=== PATIENT | female | born 1995 | race Caucasian/White ===

== ENCOUNTER 2023-10-13 00:10 | Emergency (ER) | payer MEDICAID ==
[~2023-10-13] VITALS: Ht 165.1 cm; Wt 85.7 kg
[2023-10-13 00:50] VITALS: TEMP 99.2
[2023-10-13] MEDS ORDERED: KETOROLAC TROMETHAMINE INJ 30 MG/ML VIAL ONE (01:28)
[2023-10-13] MEDS ORDERED: METHOCARBAMOL (500MG) 500 MG TABLET ONE (01:29)
[2023-10-13] MEDS: KETOROLAC TROMETHAMINE INJ 30 MG/ML VIAL IM ONE (01:36)
[2023-10-13] MEDS: METHOCARBAMOL (500MG) 500 MG TABLET PO ONE (01:36)
[2023-10-13 03:03] LABS: APPEARANCE,URINE CLEAR (CLEAR); BILIRUBIN,URINE NEGATIVE (NEGATIVE); BLOOD, URINE 2+ Ery/uL (NEGATIVE); COLOR,URINE YELLOW (YELLOW); KETONES,URINE NEGATIVE (NEGATIVE); LEUKOCYTE ESTERASE ,URINE NEGATIVE (NEGATIVE); NITRITE, URINE NEGATIVE (NEGATIVE); PH,URINE 5.5 (5.0-8.0); PROTEIN,URINE NEGATIVE (NEGATIVE); UGLUCOSE NEGATIVE (NEGATIVE)
[2023-10-13 03:06] LABS: ADD URINE CULTURE NO; BACTERIA,URINE None seen /HPF (None Seen); SQUAMOUS EPITHELIAL CELL,UR Rare /HPF (None Seen); WBC,URINE 0-2 /HPF (0-3)
[2023-10-13 03:07] LABS: PREGNANCY TEST URINE QUAL NEGATIVE (NEGATIVE)
[2023-10-13] MEDS ORDERED: PRED50TA PO (03:59)
[2023-10-13] MEDS ORDERED: HYDR-4303 PO (03:59)
[2023-10-13] MEDS ORDERED: METH-647 PO (03:59)
[2023-10-13 04:36] VITALS: BP 144/72; O2SAT 99
== END 2023-10-13 04:37 | disposition home or self-care (01) ==
LOC: ER 00:14
DX: M51.26 Other intervertebral disc displacement, lumbar region (principal); J45.909 Unspecified asthma, uncomplicated
CPT/HCPCS: 99285; 72131; 96372; 84703; 81001; J1885